=== PATIENT | female | born 1960 | race Caucasian/White ===

== ENCOUNTER 2018-02-09 23:35 | Emergency (ER) | payer OTHER ==
[2018-02-10] MEDS ORDERED: HYDROCODONE/APAP 5/325 MG TAB ONE (00:14)
--- NOTE | 2018-02-10 01:23 | ER ---
Nurse's Notes [facility] Name: Melly Aguilar Age: 57 yrs Sex: Female : 1960 Arrival Date: 02/09/2018 Time: 23:36 Bed 14 Private MD: Diagnosis: Nondisplaced fracture of greater tuberosity of left humerus Presentation: 02/10 00:15 Presenting complaint: Patient states: she was at work got up from her desk and tripped bb on her purse landing on her left arm, denies hitting her head or LOC. Transition of care: patient was not received from another setting of care. Onset of symptoms was February 09, 2018. Initial Sepsis Screen: Does the patient meet any 2 criteria? No. Patient's initial sepsis screen is negative. Does the patient have a suspected source of infection? No. Patient's initial sepsis screen is negative. Care prior to arrival: None. 00:15 Method Of Arrival: Ambulatory bb 00:15 Acuity: ZACK 4 bb Triage Assessment: 00:15 General: Appears in no apparent distress. uncomfortable, slender, Behavior is calm, bb cooperative. Pain: Complains of pain in left arm Pain currently is 7 out of 10 on a pain scale. Neuro: Level of Consciousness is awake, alert, obeys commands, Oriented to person, place, time, situation. Cardiovascular: No deficits noted. Respiratory: Respiratory effort is even, unlabored. GI: No deficits noted. No signs and/or symptoms were reported involving the gastrointestinal system. Derm: Skin is pink, warm \T\ dry. Musculoskeletal: Capillary refill < 3 seconds, Reports pain in left arm. Historical: - Allergies: 01:11 Sulfa (Sulfonamide Antibiotics); bb - Home Meds: 01:11 levothyroxine 50 mcg tab 1 tab once daily [Active]; alodronate 70 mg daily [Active]; bb - PMHx: 01:11 Osteoporosis; Hypothyroidism; bb - PSHx: 01:11 Thyroidectomy; Cholecystectomy; bb - Immunization history:: Adult Immunizations up to date. - Social history:: Smoking status: Patient/guardian denies using tobacco, Patient uses alcohol, occasionally. Patient/guardian denies using street drugs. Screenin:15 Abuse screen: Denies threats or abuse. Nutritional screening: No deficits noted. bb Tuberculosis screening: No symptoms or risk factors identified. Fall Risk Fall in past 12 months (25 points). No secondary diagnosis (0 pts). No IV (0 pts). Ambulatory Aid- None/Bed Rest/Nurse Assist (0 pts). Mental Status- Oriented to own ability (0 pts). Total Etienne Fall Scale indicates Low Risk Score (25-44 pts). Fall prevention measures have been instituted. Side Rails Up X 2 Family Present and informed to notify staff if they need to leave bedside As available Patient and Family Educated on Fall Prevention Program and strategies. Assessment: 00:15 Reassessment: No changes from previously documented assessment. see triage assessment. bb 01:16 Reassessment: Patient and/or family updated on plan of care and expected duration. Pain bb level reassessed. Patient is alert, oriented x 3, equal unlabored respirations, skin warm/dry/pink. pt states pain has improved now 4/10, family at bedside Patient states symptoms have improved. 01:56 Reassessment: Patient is alert, oriented x 3, equal unlabored respirations, skin bb warm/dry/pink. sling applied to left arm, pt verbalized understanding of and agrees to plan of care discharge instructions given pt assisted to exit via wheelchair accompanied by . Vital Signs: 00:18 BP 137 / 88; Pulse 95; Resp 18 S; Temp 98.6(O); Pulse Ox 99% on R/A; Weight 65.77 kg bb (R); Height 5 ft. 3 in. (160.02 cm) (R); Pain 7/10; 01:16 BP 149 / 87; Pulse 69; Resp 18 S; Pulse Ox 97% on R/A; Pain 4/10; bb 01:58 BP 131 / 72; Pulse 74; Resp 18 S; Temp 98.6; Pulse Ox 98% on R/A; Pain 4/10; bb 00:18 Body Mass Index 25.69 (65.77 kg, 160.02 cm) bb ED Course: 02/09 23:36 Patient arrived in ED. am2 23:47 Olivia Kearney, JONATHON is Primary Nurse. bb 23:55 Isma Krishnan NP is PHCP. pm1 23:55 Regan Birch MD is Attending Physician. pm1 04 00:15 Patient has correct armband on for positive identification. Bed in low position. Call bb light in reach. Adult w/ patient. Pulse ox on. NIBP on. 00:15 Patient did not have IV access during this emergency room visit. bb 00:18 Arm band placed on Patient placed in an exam room, on a stretcher, on pulse oximetry. bb Family accompanied patient. 00:38 X-ray completed. Portable x-ray completed in exam room. Patient tolerated procedure ag1 well. 00:40 Shoulder Left (2 View) XRAY In Process Unspecified. EDMS 01:09 Triage completed. bb 01:20 Moody Means MD is Referral Physician. pm1 01:59 No provider procedures requiring assistance completed. bb Administered Medications: 00:16 Drug: HYDROcodone-acetaminophen 5 mg-325 mg 1 tabs Route: PO; bb 01:21 Follow up: Response: Pain is decreased bb Outcome: 01:22 Discharge ordered by MD. pm1 01:59 Discharged to home via wheelchair, with family. bb 01:59 Condition: stable 01:59 Discharge instructions given to patient, Instructed on discharge instructions, follow up and referral plans. medication usage, Demonstrated understanding of instructions, follow-up care, medications, Prescriptions given X 1. 02:00 Patient left the ED. bb Signatures: Dispatcher [employer] EDNJ Olivia Kearney RN RN Ceci Rodriguez ag1 Isma Krishnan NP SALESPERSON FURNITURE pm1 Ashley Rankin am2
--- NOTE | 2018-02-10 01:23 | EDPHYS ---
Physician Documentation [facility] Name: Melly Aguilar Age: 57 yrs Sex: Female : 1960 Arrival Date: 02/09/2018 Time: 23:36 Bed 14 Private MD: ED Physician Regan Birch HPI: 02/10 01:00 This 57 yrs old Female presents to ER via Ambulatory with complaints of Left pm1 Shoulder Pain from Fall Injury. 01:00 The patient or guardian complains of pain, that is acute. left shoulder. Context: The pm1 problem was sustained at work, resulted from a fall, The patient experiences decreased range of motion, The patient reports no obvious deformity. Onset: The symptoms/episode began/occurred just prior to arrival. Modifying factors: the symptoms are alleviated by nothing. The symptoms are aggravated by movement. Severity of symptoms: in the emergency department the symptoms are unchanged. Treatment prior to arrival includes: no previous treatment. The patient has not experienced similar symptoms in the past. The patient has not recently seen a physician. Patient tripped on her purse and landed on her left shoulder with left arm slight stretched out. Patient without any head or neck injury or pain. Historical: - Allergies: 01:11 Sulfa (Sulfonamide Antibiotics); bb - Home Meds: 01:11 levothyroxine 50 mcg tab 1 tab once daily [Active]; alodronate 70 mg daily [Active]; bb - PMHx: 01:11 Osteoporosis; Hypothyroidism; bb - PSHx: 01:11 Thyroidectomy; Cholecystectomy; bb - Immunization history:: Adult Immunizations up to date. - Social history:: Smoking status: Patient/guardian denies using tobacco, Patient uses alcohol, occasionally. Patient/guardian denies using street drugs. ROS: 01:00 Constitutional: Negative for fever, chills, and weight loss, Eyes: Negative for injury, pm1 pain, redness, and discharge, ENT: Negative for injury, pain, and discharge, Neck: Negative for injury, pain, and swelling, Cardiovascular: Negative for chest pain, palpitations, and edema, Respiratory: Negative for shortness of breath, cough, wheezing, and pleuritic chest pain, Abdomen/GI: Negative for abdominal pain, nausea, vomiting, diarrhea, and constipation, Back: Negative for injury and pain. 01:00 Skin: Negative for injury, rash, and discoloration, Neuro: Negative for headache, weakness, numbness, tingling, and seizure. 01:00 MS/extremity: Positive for pain, of the left shoulder, Negative for deformity. Exam: 01:00 Constitutional: This is a well developed, well nourished patient who is awake, alert, pm1 and in no acute distress. Head/Face: Normocephalic, atraumatic. Chest/axilla: Normal chest wall appearance and motion. Nontender with no deformity. No lesions are appreciated. Cardiovascular: Regular rate and rhythm with a normal S1 and S2. No gallops, murmurs, or rubs. Normal PMI, no JVD. No pulse deficits. Respiratory: Lungs have equal breath sounds bilaterally, clear to auscultation and percussion. No rales, rhonchi or wheezes noted. No increased work of breathing, no retractions or nasal flaring. Abdomen/GI: Soft, non-tender, with normal bowel sounds. No distension or tympany. No guarding or rebound. No evidence of tenderness throughout. Back: No spinal tenderness. No costovertebral tenderness. Full range of motion. Skin: Warm, dry with normal turgor. Normal color with no rashes, no lesions, and no evidence of cellulitis. 01:00 Musculoskeletal/extremity: Extremities: grossly normal except: noted in the left shoulder: pain, decreased range of motion above shoulder due to pain. Vital Signs: 00:18 BP 137 / 88; Pulse 95; Resp 18 S; Temp 98.6(O); Pulse Ox 99% on R/A; Weight 65.77 kg bb (R); Height 5 ft. 3 in. (160.02 cm) (R); Pain 7/10; 01:16 BP 149 / 87; Pulse 69; Resp 18 S; Pulse Ox 97% on R/A; Pain 4/10; bb 01:58 BP 131 / 72; Pulse 74; Resp 18 S; Temp 98.6; Pulse Ox 98% on R/A; Pain 4/10; bb 00:18 Body Mass Index 25.69 (65.77 kg, 160.02 cm) MDM: 00:08 Patient medically screened. pm1 01:19 Data reviewed: vital signs. Data interpreted: Pulse oximetry: on room air is 97 %. pm1 Interpretation: normal. Counseling: I had a detailed discussion with the patient and/or guardian regarding: the historical points, exam findings, and any diagnostic results supporting the discharge/admit diagnosis, radiology results, the need for outpatient follow up, a orthopedic surgeon, to return to the emergency department if symptoms worsen or persist or if there are any questions or concerns that arise at home. 02/10 00:09 Order name: Shoulder Left (2 View) XRAY; Complete Time: 15:07 pm1 02/10 01:19 Order name: Sling; Complete Time: 01:56 pm1 Administered Medications: 00:16 Drug: HYDROcodone-acetaminophen 5 mg-325 mg 1 tabs Route: PO; bb 01:21 Follow up: Response: Pain is decreased ninoska Disposition: 02:50 Co-signature as Attending Physician, Regan Birch MD. sobeida Disposition: 02/10/18 01:22 Discharged to Home. Impression: Nondisplaced fracture of greater tuberosity of left humerus. - Condition is Stable. - Discharge Instructions: Humerus Fracture, Treated with Immobilization, Arm Sling Use, [id number]. - Prescriptions for Tylenol- Codeine #3 300-30 mg Oral Tablet - take 2 tablets by ORAL route every 6 hours As needed; 20 tablet. - Medication Reconciliation Form, Thank You Letter, Prescription Opioid Use form. - Follow up: Moody Means MD; When: 2 - 3 days; Reason: Recheck today's complaints, Continuance of care, Re-evaluation by your physician. - Problem is new. - Symptoms have improved. Signatures: Dispatcher [employer] Olivia Hills RN RN bb Isma Krishnan, CYANIDE CASE HARDENER CYANIDE CASE HARDENER pm1 Regan Birch MD MD
--- NOTE | 2018-02-10 08:09 | RAD REPORT ---
EXAM DESCRIPTION: RAD - Shoulder Left 2 View - 02/10/2018 12:39 am CLINICAL HISTORY: Left shoulder pain status post fall FINDINGS: An avulsion fracture involves the lateral aspect of the humeral head. Fracture fragment is by about 1 millimeter. No dislocation is seen
== END 2018-02-10 02:00 | disposition home or self-care (01) ==
LOC: ER 23:35
DX: S42.255A Nondisplaced fracture of greater tuberosity of left humerus, initial encounter for closed fracture (principal); W01.0XXA Fall on same level from slipping, tripping and stumbling without subsequent striking against object, initial encounter; Y93.01 Activity, walking, marching and hiking; Y92.89 Other specified places as the place of occurrence of the external cause; Z88.2 Allergy status to sulfonamides; E03.9 Hypothyroidism, unspecified
CPT/HCPCS: 99284

== ENCOUNTER 2020-05-18 16:08 | Emergency (ER) | payer OTHER ==
--- OUTSIDE RECORDS SUMMARY | 2020-05-18 16:11 | XMS REPORT | Clinical Summary ---
:1960 Author Organization [facility] Address [address] [place] [address] Care Team Providers Name Role Phone Arcadio Abarca MD Primary Care Provider Allergies Active Allergy Reactions Severity Noted Date Comments Sulfa (Sulfonamide Antibiotics) 6 Medications Medication Sig Dispensed Refills Start Date End Date Status CHOLECALCIFEROL, 4,000 IU 0 Act nancy VITAMIN D3, (VITAMIN D3 ORAL) levothyroxine TAKE 1 30 tablet 0 05/06/2020 Activ e (SYNTHROID) 50 mcg TABLET BY tabletIndications: MOUTH EVERY Acquired DAY hypothyroidism levothyroxine TAKE ONE 30 tablet 11 06/20/2018 Disco ntinued (SYNTHROID, TABLET BY 9 (Reorder ) LEVOXYL) 50 mcg MOUTH ONCE A tablet DAY alendronate TAKE 1 4 tablet 11 06/20/2018 Discont inued (FOSAMAX) 70 MG TABLET BY 0 (The rapy tablet MOUTH ONCE completed ) WEEKLY alendronate Take 1 12 tablet 4 03/22/2018 Discont inued (FOSAMAX) 70 MG tablet (70 0 (Th erapy tablet mg total) by complet ed) mouth once a week. Take in the morning with a full glass of water on an empty stomach, as directed. levothyroxine Take 1 90 tablet 3 03/23/2018 Disco ntinued (SYNTHROID, tablet (50 9 (Duplic ate order) LEVOXYL) 50 mcg mcg total) tablet by mouth daily. levothyroxine TAKE ONE 30 tablet 0 06/12/2019 Disco ntinued (SYNTHROID, TABLET BY 9 (Reorder ) LEVOXYL) 50 mcg MOUTH ONCE A tablet DAY levothyroxine TAKE ONE 30 tablet 0 07/10/2019 Disco ntinued (SYNTHROID, TABLET BY 0 (Reorder ) LEVOXYL) 50 mcg MOUTH ONCE A tablet DAY levothyroxine Take 1 30 tablet 0 04/09/2020 Disco ntinued (SYNTHROID) 50 mcg tablet (50 0 tabletIndications: mcg total) Acquired by mouth hypothyroidism daily. Active Problems Problem Noted Date Osteoporosis 03/22/2018 Acquired hypothyroidism 03/22/2018 Encounters Date Type Specialty Care Team Description 05/08/2020 Office Visit Endocrinology Ari Pettit MD Acquir ed hypothyroidism (Primary Dx); Osteoporosis wi th current pathological fracture with routine healing, unspecified osteoporosis type, subsequent encounter 05/08/2020 Orders Only Endocrinology Ari Pettit MD Acquir ed hypothyroidism 05/08/2020 Travel 05/04/2020 Refill Endocrinology Ari Pettit MD Acquir ed hypothyroidism 04/09/2020 Travel 04/09/2020 Refill Endocrinology Kourtney Azar MA Acquire d hypothyroidism (Primary Dx) 01/18/2020 Travel 01/18/2020 Telephone Endocrinology Corazon Villareal 11/24/2019 Orders Only Endocrinology Kourtney Azar MA Osteopo rosis with current pathological fr acture with routine healing , unspecified ost eoporosis type, subsequen t encounter (Primary Dx) 08/14/2019 Refill Endocrinology Ari Pettit MD 08/07/2019 Telephone Endocrinology Kourtney Azar MA 07/10/2019 Refill Endocrinology Ari Pettit MD 06/12/2019 Refill Endocrinology Ari Pettit MD 06/05/2019 Refill Endocrinology Ari Pettit MD after 05/18/2019 Family History Medical History Relation Name Comments Heart disease Father Macular degeneration Mother Relation Name Status Comments Father (Age 78) Mother Social History Tobacco Use Types Packs/Day Years Used Date Never Smoker Smokeless Tobacco: Never Used Alcohol Use Drinks/Week oz/Week Comments Yes moderate twice a week Sex Assigned at Date Recorded Female 05/02/2020 8:03 PM CDT Job Start Date Occupation Industry Not on file Not on file Not on file Travel History Travel Start Travel End No recent travel history available. COVID-19 Exposure Response Date Recorded In the last month, have you been in contact with No / Unsure 05/08/2020 9:43 AM CDT someone who was confirmed or suspected to have Coronavirus / COVID-19? Last Filed Vital Signs Vital Sign Reading Time Taken Comments Blood Pressure 138/84 05/08/2020 10:29 AM CDT Pulse 65 05/08/2020 10:29 AM CDT Temperature - - Respiratory Rate - - Oxygen Saturation - - Inhaled Oxygen Concentration - - Weight 68 kg (150 lb) 05/08/2020 10:29 AM CDT Height 160 cm (5' 3") 05/08/2020 10:29 AM CDT Body Mass Index 26.57 05/08/2020 10:29 AM CDT Plan of Treatment Health Maintenance Due Date Last Done Comments CERVICAL CANCER SCREENING 1979 BREAST CANCER SCREENING 2008 COLONOSCOPY SCREENING 2008 SHINGLES VACCINES (#1) 2008 INFLUENZA VACCINE 05/25/2020 Procedures Procedure Name Priority Date/Time Associated Diagnosis Comme nts VITAMIN D 25 HYDROXY Routine 05/08/2020 11:21 Osteoporosis wit h Results for this LEVEL AM CDT current pathological procedu re are in fracture with routine the re sults healing, unspecified section . osteoporosis type, subsequent encounter T4, FREE Routine 05/08/2020 11:21 Acquired Results for this AM CDT hypothyroidism procedure are in the results section. THYROID STIMULATING Routine 05/08/2020 11:21 Acquired Resu lts for this HORMONE AM CDT hypothyroidism procedure are in the results section. BONE SPECIFIC ALK Routine 05/08/2020 11:21 Osteoporosis with R esults for this PHOSPHATASE AM CDT current pathological procedu re are in fracture with routine the re sults healing, unspecified section . osteoporosis type, subsequent encounter BASIC METABOLIC Routine 05/08/2020 11:21 Osteoporosis with Res ults for this PANEL AM CDT current pathological procedu re are in fracture with routine the re sults healing, unspecified section . osteoporosis type, subsequent encounter BONE DENSITY Routine 05/08/2020 10:30 Osteoporosis with Result s for this AM CDT current pathological procedu re are in fracture with routine the re sults healing, unspecified section . osteoporosis type, subsequent encounter after 05/18/2019 Results Bone specific alk phosphatase (05/08/2020 11:21 AM CDT) Pathologist Sig nature Alkaline phosphatase, 11.4 5.6 - 29.0 mcg/L [facility] [facility] [place] Blood Narrative Performed At FASTING:NO [facility] FASTING: NO Resulting Agency Comment Performing Organization Information: Site ID: [id number] Name: [employer], Address: [address] [place] [id number] Director: Otilia Grover MD,PhD,MB A Performing Organization Address City/[facility]/Zipcode Phone Number [employer] [address] [place] [phone] [facility] [place] Vitamin D 25 hydroxy level (05/08/2020 11:21 AM CDT) Pathologist [facility] Vitamin D, 39 30 - 100 [facility] 25-hydroxy Comment: ng/mL [place] Vitamin D Status 25-OH Vitamin D: Deficiency: <20 ng/mL Insufficiency: 20 - 29 ng/mL Optimal: > or = 30 ng/mL For 25-OH Vitamin D testing on patients on D2-supplementation and patients for whom quantitation of D2 and D3 fractions is required, the [facility](T M) 25-OH VIT D, (D2,D3), LC/MS/MS is recommended: order code 22296 (patients >2yrs). See Note 1 Note 1 For additional information, please refer to http://education.HowGood/faq/KXF488 (This link is being provided for informational/ educational purposes only.) Specimen Blood Narrative Performed At FASTING:NO [facility] FASTING: NO Resulting Agency Comment Performing Organization Information: Site ID: [id number] Name: [facility] Address: [address] [place] [phone] Director: Pa Padilla Performing Organization Address [facility]/Zipcode Phone Number [employer] [address] [address] Thyroid stimulating hormone (05/08/2020 11:21 AM CDT) Pathologist [facility] [place] nature TSH 2.28 0.40 - 4.50 mIU/L [facility] [employer] [facility] ON Specimen Blood Narrative Performed At FASTING:NO [facility] FASTING: NO Resulting Agency Comment Performing Organization Information: Site ID: [id number] Name: [facility] Address: [address] [place] [phone] Director: Pa Padilla Performing Organization Address City/[facility]/Zipcode [place] [address] T4, free (05/08/2020 11:21 AM CDT) Pathologist [facility] T4, free 1.5 0.8 - 1.8 ng/dL [email or web address] [place] Specimen Blood Narrative Performed At FASTING:NO [facility] FASTING: NO Resulting Agency Comment Performing Organization Information: Site ID: [id number] Name: [facility] Address: [address] [place] [phone] Director: Pa Padilla Performing Organization Address [facility] Cent[facility]ode [place] [address] Basic metabolic panel (05/08/2020 11:21 AM CDT) Pathologist [facility] Glucose 85 65 - 139 [facility] Comment: mg/dL [place] Non-fasting reference interval BUN 16 7 - 25 mg/dL [facility] [employer] [place] Creatinine 0.71 0.50 - 0.99 [facility] Comment: mg/dL [place] For patients >49 years of age, the reference limit for Creatinine is approximately 13% higher for people identified as -Norwegian. EGFR Non-Afr. 91 > OR = 60 [facility] Norwegian mL/min/1.73m [place] 2 EGFR 106 > OR = 60 [facility] Norwegian mL/min/1.73m [place] 2 BUN/creatinine NOT APPLICABLE 6 - 22 [facility] ratio (calc) [place] Sodium 141 135 - 146 [facility] mmol/L [place] Potassium 4.3 3.5 - 5.3 [facility] mmol/L [place] Chloride 106 98 - 110 [facility] mmol/L [place] CO2 29 20 - 32 [facility] mmol/L [place] Calcium 9.6 8.6 - 10.4 [facility] mg/dL [place] Specimen Blood Narrative Performed At FASTING:NO [facility] FASTING: NO Resulting Agency Comment Performing Organization Information: Site ID: [id number] [facility]: [facility] Address: [address] [place] [address] Director: Pa Padilla Performing Organization Address City/[facility]/Zipcode Phone Number [employer] [place] [address] [place] [phone] Bone Density (05/08/2020 10:30 AM CDT) Specimen Narrative Performed At This result has an attachment that is no t available. See attached report. 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
--- OUTSIDE RECORDS SUMMARY | 2020-05-18 16:11 | XMS REPORT | Continuity of Care Document ---
:1960 Author Organization [facility] t Address [address] [place] [address] Care Team Providers Name Role Phone Arcadio Abarca MD Primary Care Physician Tori Pettit MD Attending Clinician Doe HUANG Attending Clinician Unavailable Dionna Attending Clinician Unavailable BERNY Attending Clinician Unavailable Payers Payer Name Policy Type Policy Number Effective Date Expiration Date [place] AETNAAETNA xxxxxxxxx [facility] MC/ECxxxxxxxxx2009-Present O Problems Condition Condition Condition Status Onset Resolution Last Treating Co mments Source Name Details Category Date Date Treatment Clinician Date Osteoporos Osteoporos Disease Active [place] is 5- Methodi 00:00: st 00 Acquired Acquired Disease Active [place] hypothyroi hypothyroi - Me thodi dism dism 00:00: st 00 Left Left Problem Active [facility] shoulder shoulder ity of pain pain [place] [facility] Closed Closed Problem Active [facility] displaced displaced ity of fracture fracture [place] [facility] tuberosity tuberosity an s of left of left humerus, humerus, initial initial encounter encounter Left knee Left knee Problem Active [facility] vers pain pain [facility] [place] [facility] Allergies, Adverse Reactions, Alerts Allergy Allergy Status Severity Reaction(s) Onset Inactive Treating Comm ents Source Name Type Date Date Clinician Sulfa Propensi Active [place] (Sulfona ty to 05-21 Methodi mide adverse 00:00: st Antibiot reaction 00 ics) s to drug No Known DA Active U [facility] Drug 11-14 [facility] 00:[facility]: [facility] [place] Family History Family Member Diagnosis Comments Start Date Stop Date Source Natural father Heart disease Ben Zimmerman Natural mother Macular degeneration [place] [facility] Social History Social Habit Start Date Stop Date Quantity Comments Source Sex Assigned At F [place] M ethodist Exposure to Not sure [place] Metho dist SARS-CoV-2 (event) Alcohol intake 2020-05-08 2020-05-08 Current drinker [place] [facility] 00:00:00 00:00:00 of alcohol (finding) Alcohol Comment 2016-05-21 2016-05-21 moderate twice a [facility] 00:00:00 00:00:00 week Smoking Status Start Date Stop Date Source Never smoker [place] Radha adkins Medications Ordered Filled Start Stop Current Ordering Indication Dosage Frequency Signature Comments Components Source Medication Medication Date Date Medication? Clinician (SIG) Name Name levothyroxi Yes Acquired TAKE 1 [facility] 7-13 hypothyroid TABLET BY Met retana (SYNTHROID) 00:00: ism MOUTH st 50 mcg 00 EVERY DAY tablet levothyroxi 2020- No Acquired 50ug QD Take 1 [facility] 6-16 07-13 hypothyroid tablet (50 M ethodi (SYNTHROID) 00:00: 00:00 ism mcg total) st 50 mcg 00 :00 by mouth tablet daily. levothyroxi 2020- No [facility] 9[facility] 06[facility]16 TABLET BY Methodi (SYNTHROID, 00:00: 00:[address] LEVOXYL) 50 00 :00 A DAY mcg tablet levothyroxi 2018- No TAKE ONE [facility] 8[facility]19 09-16 TABLET BY Methodi (SYNTHROID, 00:00: 00:[address] LEVOXYL) 50 00 :00 A DAY mcg tablet alendronate 2020- No TAKE 1 [facility] (FOSAMAX) 06-20 TABLET BY Meth sandoval 70 MG 00:00: 00:[address] tablet 00 :00 WEEKLY levothyroxi 2019- No TAKE ONE [place] 8 08-19 TABLET BY Methodi (SYNTHROID, 00:00: 00:[address] LEVOXYL) 50 00 :00 A DAY mcg tablet levothyroxi 2019- No 50ug QD Take 1 [facility] tamar ne 530 08-19 tablet (50 Methodi (SYNTHROID, 00:00: 00:00 mcg total) st LEVOXYL) 50 00 :00 by mouth mcg tablet daily. CHOLECALCIF Yes 4,000 IU Boo usnirav MIRNA, 03-22 Methodi VITAMIN D3, 10:50: st (VITAMIN D3 25 ORAL) alendronate 2019- No 70mg Q7D Take 1 [facility] st[facility] (FOSAMAX) 03-2215 tablet (70 Met hodi 70 MG 00:00: 00:00 mg total) st tablet 00 :00 by mouth once a week. Take in the morning with a full glass of water on an empty stomach, as directed. Vital Signs Vital Name Observation Time Observation Value Comments Source Systolic blood 2020-05-08 10:29:00 138 mm[Hg] Sheela Zimmerman pressure Diastolic blood 2020-05-08 10:29:00 84 mm[Hg] Alicia Vegaist pressure Heart rate 2020-05-08 10:29:00 65 /min Ben Zimmerman Body height 2020-05-08 10:29:00 160 cm Ben Zimmerman Body weight 2020-05-08 10:29:00 68.04 kg Ben Zimmerman BMI 2020-05-08 10:29:00 26.57 kg/m2 Ben Zimmerman Procedures Procedure Date / Time Performing Clinician Source Performed BASIC METABOLIC PANEL 2020-05-08 11:21:00 Ari Pettit BONE SPECIFIC ALK 2020-05-08 11:21:00 Ari Pettit ethodist PHOSPHATASE THYROID STIMULATING 2020-05-08 11:21:00 Ari Pettit HORMONE T4, FREE 2020-05-08 11:21:00 Ari Pettit VITAMIN D 25 HYDROXY 2020-05-08 11:21:00 Ari Pettit LEVEL BONE DENSITY 2020-05-08 10:30:43 Tammichaim Ari HarperAshley [place] Met hodist [U] XRAY KNEE 4 OR MORE 2019-07-24 00:00:00 [facility] LEFT [id number] Physicians [U] XRAY SHOULDER MIN 2 2018-03-23 00:00:00 [facility] LEFT [id number] Physicians [U] XRAY SHOULDER MIN 2 2018-03-02 00:00:00 [facility] LEFT [id number] Physicians Plan of Care Planned Activity Planned Date Details Comments Source Future Scheduled 2020-05-25 INFLUENZA VACCINE [place] [facility] Test 00:00:00 [code = INFLUENZA VACCINE] Future Scheduled 2008 BREAST CANCER [place] Me thodist Test 00:00:00 SCREENING [code = BREAST CANCER SCREENING] Future Scheduled 2008 COLONOSCOPY SCREENING [facility] Pentecostal Test 00:00:00 [code = COLONOSCOPY SCREENING] Future Scheduled 2008 SHINGLES VACCINES [place] [facility] Test 00:00:00 (#1) [code = SHINGLES VACCINES (#1)] Future Scheduled 1979 Screening for [facility] thodist Test 00:00:00 malignant neoplasm of cervix (procedure) [code = 713709802] Encounters Start End Encounter Admission Attending Care Care Encounter Source Date/Time Date/Time Type Type Clinicians Facility Department ID 2020-05-08 2020-05-08 Outpatient [facility] [id number] [place] 00:00:00 00:00:00 ARI 774 Method i 2020-05-08 2020-05-08 Outpatient [facility] [id number] [address] [place] [address] 00:00:00 00:00:[address] ARI [address] 2019-07-28 2019-07-28 Appointmen JACQUES ARRIETA Orthopedics [id number] [facility] 14:45:00 14:45:00 t; DIANA ARRIETA M.D. at [facility] [place] ORTIZ [facility] [place] [facility] [address] 2018-05-12 2018-05-12 Appointmen JACQUES ARRIETA [facility] [id number] Univers 09:00:00 09:00:00 t; DIANA ARRIETA M.D. i ty of [place] [facility] 2018-03-24 2018-03-24 Appointmen JACQUES ARRIETA [facility] [id number] Univers 09:15:00 09:15:00 t; DIANA ARRIETA M.D. [facility] i ty of [place] s [address] Physici ans 2018-03-03 2018-03-03 Appointmen BERNY [facility] [id number] Univers 10:45:00 10:45:00 t; DIANA ARRIETA M.D. [facility] i ty of [place] OR[place]Z [place] [address] Physici ans 2018-02-10 2018-02-10 Appointmen BERNY [facility] [id number] Univers 13:45:00 13:45:00 t; DIANA ARRIETA M.D. [facility] i ty of [place] ORTIZ [facility] s [facility] B Physici ans Results Test Description Test Time Test Comments Results Result Comments Source Basic metabolic panel 2020-05-15 01:08:00 Test Item Value Reference Range Interpretation Comme nts Glucose (test code = 85 mg/dL 65-139 Non-fasting 2345-7) reference inter pamela BUN (test code = 16 mg/dL 7-25 3094-0) Creatinine (test 0.71 mg/dL 0.5-0.99 For patient s >49 years of code = 2160-0) age, the refe rence limitfor Creati nine is approximately 1 3% higher for peopleident ified as -Le n. EGFR Non-Afr. 91 > OR = 60 Moroccan (test code mL/min/1.73m2 = 2775) EGFR 106 > OR = 60 [place]oc[place] (test code mL/min/1.73m2 = 18479-0) BUN/creatinine ratio NOT APPLICABLE (calc) (test code = 3097-3) Sodium (test code = 141 mmol/L 454-195 8462-2) Potassium (test code 4.3 mmol/L 3.5-5.3 = 2823-3) Chloride (test code 106 mmol/L 98-110 = 2075-0) CO2 (test code = 29 mmol/L 20-32 2027-9) Calcium (test code = 9.6 mg/dL 8.6-10.4 41058-3) ARIELLA (test code = FASTING:NOFASTING: NO ARIELLA) RAC (test code = Performing RAC) Organization Information: Site ID[facility] Address: [address] [place] [address] Director: Pa Padilla [place] PentecostalT4, [id number] 01:08:00 Test Item Value Reference Range Interpretation Comments T4, free (test code 1.5 ng/dL 0.8-1.8 = 3024-7) ARIELLA (test code = FASTING:NOFASTING: NO ARIELLA) RAC (test code = Performing Organization RAC) Information: Site ID: [facility] Name: [facility] Address: [address] [place] [address] Director: Pa Ericksonridge [place] MethodistThyroid stimulating [id number] 01:08:00 Test Item Value Reference Range Interpretation Comments TSH (test code = 2.28 0.40- 4.50 mIU/L 3016-3) ARIELLA (test code = FASTING:NOFASTING: NO ARIELLA) RAC (test code = Performing Organization RAC) Information: Site ID: [facility] Name: [facility] Address: [address] [place] [id number] Director: Pa Bassettenridge [place] SilviaistVitamin D 25 hydroxy [id number] 01:08:00 Test Item Value Reference Range Interpretation Comments Vitamin D, 39 ng/mL 30-100 Vitamin D Statu s 25-hydroxy 25-OH [place] min (test code = D: Deficiency: 1989-3) < 20 ng/mLInsufficie ncy: 20 - 29 ng/mLOptimal: > or = 30 ng/mL For 25-OH Vitamin D testi ng on patients on D2-supplementat ion and patients fo r whom quantitati on of D2 and D3 fractions is required, the QuestAssureD(TM )25- OH VIT D, (D2,D 3), LC/MS/MS is recommended: or ryan code 92820 (patients >2yrs).See Note 1 Note 1 For additional information, pl ease refer to http://educatio n.Qu est[employer]. com/ faq/NKT969 (Thi s link is being provided for informational/e duca tional purposes only.) ARIELLA (test code FASTING:NOFASTING: = ARIELLA) NO RAC (test code Performing = RAC) Organization Information: Site ID: [facility] Name: [facility] Address: [address] [place] [phone] Director: Pa VegaistBone specific alk [id number] 01:08:00 Test Item Value Reference Range Interpretation Comments Alkaline phosphatase, 11.4 5.6- 29.0 mcg/L bone specific (test code = 01794-8) ARIELLA (test code = ARIELLA) FASTING:NOFASTING: NO RAC (test code = RAC) Performing Organization Information: Site ID: [facility] Name: [facility], Address: [address] [place] [phone] Director: Otilia Grover MD,PhD,LYNNETTE [place] Pent[facility]ostal[U] XRAY SHOULDER MIN 2 VWS LEFT [id number] 11:17:00Images acquired, not reported on this accession number.[facility] Physicians [U] XRAY SHOULDER MIN 2 VWS LEFT [id number] 14:02:00Images acquired, not reported on this accession number.[facility] Physicians
[2020-05-18] MEDS ORDERED: predniSONE 20 MG TAB ONE (16:29)
[2020-05-18] MEDS ORDERED: FAMOTIDINE 20 MG/2 ML VIAL IV ONE (16:29)
[2020-05-18] MEDS ORDERED: METHYLPREDNISOLONE 125 MG INJ ONE (16:29)
[2020-05-18] MEDS ORDERED: DIPHENHYDRAMINE 50 MG/ML VIAL ONE ×2 (16:29→17:21)
[2020-05-18 16:41] LABS: Absolute Lymphocytes (CBC) 1.4 K/uL (0.7-4.9); Basophils % 1.3 % (0-1.3); Hematocrit 38.4 % (36.0-45.0); Lymphocytes % 24.7 % (15.3-44.8); MPV 10.6 fL (7.6-11.3); RBC Red Blood Cell Count 4.46 M/uL (3.86-4.86)
[2020-05-18] MEDS ORDERED: NA CHLORIDE 0.9% 1,000 ML ONE (16:46)
[2020-05-18 16:58] LABS: Potassium 3.4 mmol/L (3.5-5.1)
--- NOTE | 2020-05-18 17:27 | ER ---
[facility] Name: Melly Aguilar Age: 60 yrs Sex: Female : 1960 Arrival Date: 05/18/2020 Time: 16:09 Bed 5 Private MD: Diagnosis: Dermatitis, unspecified;Urticaria, unspecified;Hypokalemia Presentation: 05/18 16:17 Chief complaint: Patient states: Hives all over body started last night. Had dental ca1 surgery done at 1300. Has been taking Clindamycin x 7 days prior to hives. Reports itching all over, took Benadryl PO with some relief. Denies difficulty breathing, throat or mouth itching and swelling. Coronavirus screen: Patient denies a cough. Patient denies shortness of breath or difficulty breathing. Patient denies measured and/or subjective temperature greater than 100.4F prior to today's visit. Patient denies travel on a cruise ship or to a country the [facility] currently lists as an affected area. Patient denies contact with known and/or suspected case of COVID-19. Proceed with normal triage. Ebola Screen: Patient negative for fever greater than or equal to 101.5 degrees Fahrenheit, and additional compatible Ebola Virus Disease symptoms Patient denies exposure to infectious person. Patient denies travel to an Ebola-affected area in the 21 days before illness onset. No symptoms or risks identified at this time. Initial Sepsis Screen: Does the patient meet any 2 criteria? No. Patient's initial sepsis screen is negative. Does the patient have a suspected source of infection? No. Patient's initial sepsis screen is negative. Risk Assessment: Do you want to hurt yourself or someone else? Patient reports no desire to harm self or others. Onset of symptoms was May 17, 2020. 16:17 Method Of Arrival: Ambulatory ca1 16:17 Acuity: ZACK 3 ca1 16:20 Onset: The symptoms/episode began/occurred yesterday. Anaphylaxis evaluation, no signs bp or symptoms of anaphylaxis were noted. Triage Assessment: 16:20 General: Appears distressed, uncomfortable, Behavior is cooperative, appropriate for bp age, agitated, anxious. Pain: Denies pain. EENT: No deficits noted. Neuro: No deficits noted. Cardiovascular: Rhythm is sinus tachycardia. Respiratory: Airway is patent Respiratory effort is even, unlabored, Respiratory pattern is regular, symmetrical. GI: No signs and/or symptoms were reported involving the gastrointestinal system. : No signs and/or symptoms were reported regarding the genitourinary system. Derm: Rash noted that is urticaria, on GENERALIZED. Musculoskeletal: No deficits noted. Historical: - Allergies: 16:20 Sulfa (Sulfonamide Antibiotics); ca1 - PMHx: 16:20 Hypothyroidism; Osteoporosis; ca1 - PSHx: 16:20 Thyroidectomy; Cholecystectomy; ca1 - Immunization history:: Adult Immunizations up to date. - Social history:: Smoking status: Patient denies any tobacco usage or history of. - Family history:: not pertinent. Screenin:20 Abuse screen: Denies threats or abuse. Denies injuries from another. Nutritional bp screening: No deficits noted. Tuberculosis screening: No symptoms or risk factors identified. Fall Risk None identified. Assessment: 16:17 General: SEE TRIAGE NOTE. Respiratory: Airway is patent Respiratory effort is even, bp unlabored, Respiratory pattern is regular, symmetrical, Breath sounds are clear bilaterally. 17:15 Reassessment: Patient states symptoms have improved. Respiratory: Airway is patent bp Respiratory effort is even, unlabored. 18:02 Reassessment: PT D/C HOME AMBULATORY, DX WITH DERMATITIS AND URTICARIA. bp Vital Signs: 16:17 BP 134 / 108; Pulse 98; Resp 18 S; Temp 97.7(TE); Pulse Ox 100% on R/A; Weight 66.68 kg ca1 (R); Height 5 ft. 3 in. (160.02 cm) (R); 16:38 BP 147 / 85; Pulse 85; Resp 16; Pulse Ox 100% ; bp 17:15 BP 149 / 78; Pulse 79; Resp 16; Pulse Ox 100% ; bp 18:02 BP 146 / 82; Pulse 75; Resp 17; Temp 97.8; Pulse Ox 99% ; bp 16:17 Body Mass Index 26.04 (66.68 kg, 160.02 cm) ca1 ED Course: 16:09 Patient arrived in ED. as 16:11 Aramis Benítez MD is Attending Physician. [facility] 16:20 Triage completed. ca1 16:20 Arm band placed on right wrist. ca1 16:20 Patient has correct armband on for positive identification. Bed in low position. Call bp light in reach. Side rails up X2. 16:30 Magnus Baker, RN is Primary Nurse. bp 16:30 Inserted saline lock: 18 gauge in right antecubital area, using aseptic technique. bp Blood collected. 17:27 Emerson Medel MD is Referral Physician. [facility] 18:02 No provider procedures requiring assistance completed. IV discontinued, intact, bp bleeding controlled, No redness/swelling at site. Pressure dressing applied. Administered Medications: 16:30 Drug: NS 0.9% 1000 ml Route: IV; Rate: 1 bolus; Site: right antecubital; bp 18:03 Follow up: IV Status: Completed infusion; IV Intake: 1000ml bp 16:30 Drug: Benadryl 25 mg Route: IVP; Site: right antecubital; bp 17:17 Follow up: Response: No adverse reaction; Marked relief of symptoms bp 16:30 Drug: Pepcid 40 mg Route: IVP; Site: right antecubital; bp 17:17 Follow up: Response: Marked relief of symptoms bp 16:30 Drug: SOLU-Medrol 125 mg Route: IVP; Site: right antecubital; bp 17:17 Follow up: Response: Marked relief of symptoms bp 16:30 Drug: predniSONE 60 mg Route: PO; bp 17:17 Follow up: Response: No adverse reaction bp 17:14 Drug: Benadryl 25 mg Route: IVP; Site: right antecubital; bp 17:17 Follow up: Response: Marked relief of symptoms bp Intake: 18:03 IV: 1000ml; Total: 1000ml. bp Outcome: 17:27 Discharge ordered by . zayda 18:02 Discharged to home ambulatory. bp 18:02 Condition: stable 18:02 Discharge instructions given to patient, Instructed on discharge instructions, follow up and referral plans. medication usage, Demonstrated understanding of instructions, follow-up care, medications, Prescriptions given X 4. 18:04 Patient left the ED. bp Signatures: Aramis Benítez MD MD cha Martinez, Amelia as Magnus Baker, RN RN bp Deepa Kwon RN RN ca1
--- NOTE | 2020-05-18 17:27 | EDPHYS ---
Physician Documentation [facility] Name: Melly Aguilar Age: 60 yrs Sex: Female : 1960 Arrival Date: 05/18/2020 Time: 16:09 Bed 5 Private MD: ED Physician Aramis Benítez HPI: 05/18 16:24 This 60 yrs old Female presents to ER via Ambulatory with complaints of zayda Allergic Reaction. 16:24 The patient presents with nasal itching, rash, redness of skin. Onset: The zayda symptoms/episode began/occurred last night. Associated signs and symptoms: The patient has no apparent associated signs or symptoms. Possible causes: The patient has no known obvious cause for the symptoms. At home the patient or guardian has treated the symptoms with Benadryl. Severity of symptoms: At their worst the symptoms were mild moderate in the emergency department the symptoms are unchanged. The patient has not experienced similar symptoms in the past. Historical: - Allergies: 16:20 Sulfa (Sulfonamide Antibiotics); ca1 - PMHx: 16:20 Hypothyroidism; Osteoporosis; ca1 - PSHx: 16:20 Thyroidectomy; Cholecystectomy; ca1 - Immunization history:: Adult Immunizations up to date. - Social history:: Smoking status: Patient denies any tobacco usage or history of. - Family history:: not pertinent. ROS: 16:24 Constitutional: Negative for fever, chills, and weight loss, Eyes: Negative for injury, zayda pain, redness, and discharge, ENT: Negative for injury, pain, and discharge, Neck: Negative for injury, pain, and swelling, Cardiovascular: Negative for chest pain, palpitations, and edema, Respiratory: Negative for shortness of breath, cough, wheezing, and pleuritic chest pain, Abdomen/GI: Negative for abdominal pain, nausea, vomiting, diarrhea, and constipation, Back: Negative for injury and pain, : Negative for injury, bleeding, discharge, and swelling, MS/Extremity: Negative for injury and deformity, Neuro: Negative for headache, weakness, numbness, tingling, and seizure, Psych: Negative for depression, anxiety, suicide ideation, homicidal ideation, and hallucinations, Allergy/Immunology: Negative for hives, rash, and allergies, Endocrine: Negative for neck swelling, polydipsia, polyuria, polyphagia, and marked weight changes, Hematologic/Lymphatic: Negative for swollen nodes, abnormal bleeding, and unusual bruising. 16:24 Skin: Positive for rash, diffusely. Exam: 16:24 Constitutional: This is a well developed, well nourished patient who is awake, alert, zayda and in no acute distress. Head/Face: Normocephalic, atraumatic. Eyes: Pupils equal round and reactive to light, extra-ocular motions intact. Lids and lashes normal. Conjunctiva and sclera are non-icteric and not injected. Cornea within normal limits. Periorbital areas with no swelling, redness, or edema. ENT: Nares patent. No nasal discharge, no septal abnormalities noted. Tympanic membranes are normal and external auditory canals are clear. Oropharynx with no redness, swelling, or masses, exudates, or evidence of obstruction, uvula midline. Mucous membranes moist. Neck: Trachea midline, no thyromegaly or masses palpated, and no cervical lymphadenopathy. Supple, full range of motion without nuchal rigidity, or vertebral point tenderness. No Meningismus. Chest/axilla: Normal chest wall appearance and motion. Nontender with no deformity. No lesions are appreciated. Cardiovascular: Regular rate and rhythm with a normal S1 and S2. No gallops, murmurs, or rubs. Normal PMI, no JVD. No pulse deficits. Respiratory: Lungs have equal breath sounds bilaterally, clear to auscultation and percussion. No rales, rhonchi or wheezes noted. No increased work of breathing, no retractions or nasal flaring. Abdomen/GI: Soft, non-tender, with normal bowel sounds. No distension or tympany. No guarding or rebound. No evidence of tenderness throughout. Back: No spinal tenderness. No costovertebral tenderness. Full range of motion. MS/ Extremity: Pulses equal, no cyanosis. Neurovascular intact. Full, normal range of motion. Neuro: Awake and alert, GCS 15, oriented to person, place, time, and situation. Cranial nerves II-XII grossly intact. Motor strength 5/5 in all extremities. Sensory grossly intact. Cerebellar exam normal. Normal gait. Psych: Awake, alert, with orientation to person, place and time. Behavior, mood, and affect are within normal limits. 16:24 Skin: Appearance: Color: erythematous, Temperature: warm, Moisture: normal moisture, petechiae, not noted, ecchymosis, not noted, diaphoresis is not appreciated. Vital Signs: 16:17 BP 134 / 108; Pulse 98; Resp 18 S; Temp 97.7(TE); Pulse Ox 100% on R/A; Weight 66.68 kg ca1 (R); Height 5 ft. 3 in. (160.02 cm) (R); 16:38 BP 147 / 85; Pulse 85; Resp 16; Pulse Ox 100% ; bp 17:15 BP 149 / 78; Pulse 79; Resp 16; Pulse Ox 100% ; bp 18:02 BP 146 / 82; Pulse 75; Resp 17; Temp 97.8; Pulse Ox 99% ; bp 16:17 Body Mass Index 26.04 (66.68 kg, 160.02 cm) ca1 MDM: 16:13 Patient medically screened. [facility] 16:28 Data reviewed: vital signs, nurses notes, lab test result(s). [facility] 16:28 Differential diagnosis: anaphylaxis, angioedema, bronchospasm, urticaria. Data [facility] interpreted: security monitor: rate is 98 beats/min, rhythm is normal sinus rhythm, Pulse oximetry: on room air. 16:29 Counseling: I had a detailed discussion with the patient and/or guardian regarding: the [facility] historical points, exam findings, and any diagnostic results supporting the discharge/admit diagnosis, lab results, the need for outpatient follow up. 05/18 16:23 Order name: CBC with Diff; Complete Time: 16:52 [facility] 05/18 16:23 Order name: Chem 7; Complete Time: 17:00 [facility] 05/18 17:01 Order name: PO challenge: juice; Complete Time: 17:14 [facility] Administered Medications: 16:30 Drug: NS 0.9% 1000 ml Route: IV; Rate: 1 bolus; Site: right antecubital; bp 18:03 Follow up: IV Status: Completed infusion; IV Intake: 1000ml bp 16:30 Drug: Benadryl 25 mg Route: IVP; Site: right antecubital; bp 17:17 Follow up: Response: No adverse reaction; Marked relief of symptoms bp 16:30 Drug: Pepcid 40 mg Route: IVP; Site: right antecubital; bp 17:17 Follow up: Response: Marked relief of symptoms bp 16:30 Drug: SOLU-Medrol 125 mg Route: IVP; Site: right antecubital; bp 17:17 Follow up: Response: Marked relief of symptoms bp 16:30 Drug: predniSONE 60 mg Route: PO; bp 17:17 Follow up: Response: No adverse reaction bp 17:14 Drug: Benadryl 25 mg Route: IVP; Site: right antecubital; bp 17:17 Follow up: Response: Marked relief of symptoms bp Disposition: 05/18/20 17:27 Discharged to Home. Impression: Dermatitis, unspecified, Urticaria, unspecified, Hypokalemia. - Condition is Stable. - Discharge Instructions: Potassium Content of Foods, Hives, Rash, Angioedema, Rash, [id number], Hypokalemia. - Prescriptions for Benadryl 25 mg Oral Capsule - take 1 capsule by ORAL route every 6 hours As needed; 30 tablet. Pepcid 20 mg Oral Tablet - take 1 tablet by ORAL route every 12 hours for 10 days; 20 tablet. Prednisone 20 mg Oral Tablet - take 2 tablet by ORAL route once daily for 5 days; 10 tablet. EpiPen 0.3 mg Injection auto- injector - inject 1 pen by INTRAMUSCULAR route one time Inject into the outer portion of the thigh, through clothing if necessary. Indicated in the emergency treatment of allergic reactions; 1 box. - Medication Reconciliation Form, Thank You Letter, Antibiotic Education, Prescription Opioid Use form. - Follow up: Private Physician; When: 2 - 3 days; Reason: Recheck today's complaints, Continuance of care, Re-evaluation by your physician. Follow up: Emerson Medel; When: 2 - 3 days; Reason: Recheck today's complaints, Re-evaluation by your physician. - Problem is new. - Symptoms have improved. Signatures: Dispatcher [employer] Aramis Morales MD MD cha Peltier, Brian, RN RN Deepa Vallejo RN RN ca1 Corrections: (The following items were deleted from the chart) 18:04 17:27 05/18/2020 17:27 Discharged to Home. Impression: Dermatitis, unspecified; bp Urticaria, unspecified; Hypokalemia. Condition is Stable. Discharge Instructions: Hives, Rash, Rash, [id number], Angioedema, Hypokalemia, Potassium Content of Foods. Prescriptions for Benadryl 25 mg Oral Capsule - take 1 capsule by ORAL route every 6 hours As needed; 30 tablet, Pepcid 20 mg Oral Tablet - take 1 tablet by ORAL route every 12 hours for 10 days; 20 tablet, Prednisone 20 mg Oral Tablet - take 2 tablet by ORAL route once daily for 5 days; 10 tablet, EpiPen 0.3 mg Injection auto-injector - inject 1 pen by INTRAMUSCULAR route one time Inject into the outer portion of the thigh, through clothing if necessary. Indicated in the emergency treatment of allergic reactions; 1 box. and Forms are Medication Reconciliation Form, Thank You Letter, Antibiotic Education, Prescription Opioid Use. Follow up: Private Physician; When: 2 - 3 days; Reason: Recheck today's complaints, Continuance of care, Re-evaluation by your physician. Follow up: Emerson Medel; When: 2 - 3 days; Reason: Recheck today's complaints, Re-evaluation by your physician. Problem is new. Symptoms have improved. zayda
[2020-05-18 18:15] VITALS: BP 146/82; TEMP 97.8; O2SAT 99
== END 2020-05-18 18:04 | disposition home or self-care (01) ==
LOC: ER 16:08
DX: L30.9 Dermatitis, unspecified (principal); L50.9 Urticaria, unspecified; E87.6 Hypokalemia; Z88.2 Allergy status to sulfonamides
CPT/HCPCS: 96361; 85025; 80048; 36415; 96375; 96374; 99284; J1200 ×2; J7512; J7030; J2930